=== PATIENT | female | born 1975 | race Two or more races ===

== ENCOUNTER 2019-10-01 21:17 | Emergency (ER) | payer SELFPAY ==
[~2019-10-01] VITALS: Ht 167.6 cm; Wt 45.4 kg
[2019-10-01 22:12] LABS: BILIRUBIN,URINE NEGATIVE (NEG); CLARITY,URINE CLEAR; COLOR,URINE YELLOW; NITRITE,URINE NEGATIVE (NEG); PROTEIN,URINE NEGATIVE (NEG-TRACE)
[2019-10-01 22:17] LABS: SQUAMOUS EPITHELIAL CELL,UR FEW /LPF
[2019-10-01 22:18] LABS: BACTERIA,URINE 0 /HPF (0-FEW); RBC,URINE 0 /HPF (0-2)
[2019-10-01 22:40] LABS: INFLUENZA A PATIENT NEGATIVE (NEGATIVE); INFLUENZA B PATIENT NEGATIVE (NEGATIVE)
[2019-10-01] MEDS ORDERED: PRED20TA PO (22:44)
[2019-10-01] MEDS ORDERED: ALBU2.5V8 IH (22:44)
--- NOTE | 2019-10-01 22:44 | PHYS DOC ---
Past Medical History Past Medical History: No Pertinent History Past Surgical History: No Surgical History Smoking Status: Never Smoker Alcohol Use: None Drug Use: None Adult General Chief Complaint Chief Complaint: FLU SYMPTOM HPI HPI 43-year-old female presents with report of 1 year history of generalized body aches. Patient does report some shortness of air but reports has had similar experiences for her whole life. Patient does report intermittent fever which is been ongoing for the last 3 months. Patient reports had seen a another provider and was instructed to take [id number]-[id number] ibuprofen and Tylenol. Denies recent travel. Denies . Denies known sick contacts. Review of Systems Review of Systems Constitutional: Reports fever and chills and body aches Eyes: Denies redness or eye pain HENT: Denies nasal congestion or sore throat Respiratory: Reports cough and shortness of breath Cardiovascular: Denies chest pain or palpitations GI: Denies abdominal pain, nausea, or vomiting : Denies dysuria or hematuria Musculoskeletal: Denies back pain or joint pain Integument: Denies rash or skin lesions Neurologic: Denies headache, focal weakness or sensory changes Complete systems were reviewed and found to be within normal limits, except as documented in this note. Allergies Allergies Allergies Coded Allergies Type Severity Reaction Last Updated Verified No Known Drug Allergies 10/02/19 No Physical Exam Physical Exam Constitutional: Well developed, well nourished, tearful, non-toxic appearance HENT: Normocephalic, atraumatic, oropharynx moist Eyes: Conjunctiva normal, no discharge Neck: Normal range of motion, no tenderness, supple, no meningeal signs Cardiovascular: Heart rate tachycardic, regular rhythm Lungs & Thorax: Bilateral breath sounds clear to auscultation, no wheezing Abdomen: Soft, no tenderness Skin: Warm, dry, no erythema, no rash Extremities: No tenderness, ROM intact, no edema Neurologic: Alert and oriented X 3, no focal deficits noted Psychologic: Affect anxious, judgment normal Current Patient Data Vital Signs Vital Signs Date Time Temp Pulse Resp B/P (MAP) Pulse Ox O2 Delivery O2 Flow Rate FiO2 10/01/19 21:33 98.5 104 18 103/75 (84) 99 Room Air 98.5 Lab Values Laboratory Tests Test 10/01/19 21:58 10/01/19 22:01 Urine Collection Type Unknown Urine Color Yellow Urine Clarity Clear Urine pH 7.0 (<5.0-8.0) Urine Specific [place] 1.015 (1.000-1.030) Urine Protein Negative mg/dL (NEG-TRACE) Urine Glucose (UA) Negative mg/dL (NEG) Urine Ketones (Stick) Negative mg/dL (NEG) Urine Blood Negative (NEG) Urine Nitrite Negative (NEG) Urine Bilirubin Negative (NEG) Urine Urobilinogen Dipstick 1.0 mg/dL (0.2 mg/dL) Urine Leukocyte Esterase Small (NEG) Urine RBC 0 /HPF (0-2) Urine WBC 5-10 /HPF (0-4) Urine Squamous Epithelial Cells Few /LPF Urine Bacteria 0 /HPF (0-FEW) Urine Mucus Slight /LPF Influenza Type A Antigen Negative (NEGATIVE) Influenza Type B Antigen Negative (NEGATIVE) EKG EKG [] Radiology/Procedures Radiology/Procedures PROCEDURE: CHEST PA & LATERAL PA and lateral chest radiographs 10/01/2019 CLINICAL HISTORY: Cough and bodyaches. PA and lateral digital radiographs of the chest were obtained. No previous studies are available for comparison. The cardiac and mediastinal silhouettes are within normal limits in size and configuration. A small calcified granuloma is seen involving the left upper lobe. No acute pulmonary infiltrate is seen. No pleural effusion or pneumothorax is noted. Degenerative changes are seen involving the thoracic spine. IMPRESSION: No acute abnormality is seen. Electronically signed by: Srinivasa Dotson MD (10/01/2019 11:50 PM) [id number] Course & Med Decision Making Course & Med Decision Making Pertinent Labs and Imaging studies reviewed. (See chart for details) Patient presents with 1 year history of generalized body aches and 3 month history of intermittent fevers. Patient tearful but does not appear in any acute distress. Vital signs stable. Patient currently afebrile. UA without signs of infection. Urine negative. Rapid influenza negative. Chest x-ray without acute process. Symptomatic treatment provided. Cannot fully exclude COVID 19. Patient not meeting criteria for ED testing. Patient advised to self-quarantine. Patient stable for discharge with outpatient follow-up with PCP. Discussed findings and plan with patient, who acknowledges understanding and agreement. Dragon Disclaimer Dragon Disclaimer This electronic medical record was generated, in whole or in part, using a voice recognition dictation system. Departure Departure Impression: Primary Impression: Bronchitis Disposition: 01 HOME, SELF-CARE Condition: STABLE Patient Instructions: Acute Bronchitis, Bronchitis, [id number] Scripts Prednisone (PREDNISONE) 20 Mg Tablet 2 TAB PO DAILY, #10 TAB Prov: SIVA POLLOCK DO 10/01/19 Albuterol Sulfate (Proair Hfa) 8.5 Gm Hfa.aer.ad 2 PUFF IH PRN Q4-6HRS PRN for wheezing, #1 INHALER 0 Refills Prov: SIVA POLLOCK DO 10/01/19 SIVA POLLOCK DO Oct 01, 2019 22:44
--- NOTE | 2019-10-01 23:53 | RAD ---
PA and lateral chest radiographs 10/01/2019 CLINICAL HISTORY: Cough and bodyaches. PA and lateral digital radiographs of the chest were obtained. No previous studies are available for comparison. The cardiac and mediastinal silhouettes are within normal limits in size and configuration. A small calcified granuloma is seen involving the left upper lobe. No acute pulmonary infiltrate is seen. No pleural effusion or pneumothorax is noted. Degenerative changes are seen involving the thoracic spine. IMPRESSION: No acute abnormality is seen. Electronically signed by: Srinivasa Dotson MD (10/01/2019 11:50 PM) [id number]
[2019-10-01 23:55] VITALS: BP 128/63
== END 2019-10-01 23:57 | disposition home or self-care (01) ==
LOC: ER 21:17
DX: J40 Bronchitis, not specified as acute or chronic (principal); R50.9 Fever, unspecified; R06.02 Shortness of breath; R05 Cough
CPT/HCPCS: 71046; 81001; 81025; 87086; 87804; 99284